=== PATIENT | male | born 1950 | race Caucasian/White ===

== ENCOUNTER 2019-12-30 06:21 | Emergency (ER) | payer MEDICARE, BC ==
[2019-12-30 06:31] VITALS: BP 181/78; PULSE 103
--- NOTE | 2019-12-30 06:37 | EDM.PDOC ---
<Vinh Guzman - Last Filed: 12/30/19 06:35> ED HPI GENERAL MEDICAL PROBLEM - General Chief Complaint: Diabetic Complaint Stated Complaint: SOB, SWEATING Time Seen by Provider: 12/30/19 06:32 Source of Information: Reports: Patient History Limitations: Reports: No Limitations - History of Present Illness INITIAL COMMENTS - FREE TEXT/NARRATIVE: woke up feeling SOB, denies cough chest pain, but does feel achy all over. states does get SOB while going up stairs since gaining weight this winter. - Related Data Allergies Allergy/AdvReac Type Severity Reaction Status Date / Time No Known Allergies Allergy Verified 01/23/15 20:28 Home Meds: Home Meds Nateglinide 120 mg PO TIDAC 01/23/15 [History] Pioglitazone HCl 45 mg PO DAILY 01/23/15 [History] amLODIPine Besylate/Benazepril [Amlodipine-Benazepril 5-20 MG] 1 each PO DAILY 01/23/15 [History] atorvaSTATin Calcium [Atorvastatin Calcium] 40 mg PO BEDTIME 01/23/15 [History] metFORMIN [Glucophage XR] 1 tab PO DAILY 01/23/15 [History] Past Medical History Other HEENT History: wears corrective lenses Cardiovascular History: Reports: High Cholesterol, Hypertension Other Gastrointestinal History: Acid Reflux Endocrine/Metabolic History: Reports: Diabetes, Type II Social & Family History - Family History Family Medical History: Noncontributory - Tobacco Use Smoking Status *Q: Unknown Ever Smoked Second Hand Smoke Exposure: No - Caffeine Use Caffeine Use: Reports: Coffee - Alcohol Use Days Per Week of Alcohol Use: 7 Number of Drinks Per Day: 2 Total Drinks Per Week: 14 - Recreational Drug Use Recreational Drug Use: No ED ROS GENERAL - Review of Systems Review Of Systems: Comprehensive ROS is negative, except as noted in HPI. ED EXAM GENERAL NO PERIP PULSE - Physical Exam Exam: See Below Exam Limited By: No Limitations General Appearance: Alert, WD/WN, Mild Distress, Other (discomfort) Ears: Hearing Grossly Normal Throat/Mouth: Normal Voice, No Airway Compromise Head: Atraumatic Neck: Non-Tender, Full Range of Motion Respiratory/Chest: No Accessory Muscle Use, Rhonchi Cardiovascular: Regular Rate, Rhythm GI/Abdominal: Soft, Non-Tender Extremities: Pedal Edema, Other (2+ bilateral) Neurological: Alert, Oriented, Normal Cognition, Normal Gait, No Motor/Sensory Deficits Psychiatric: Flat Affect Skin Exam: Warm, Dry, Normal Color Lymphatic: No Adenopathy Course - Vital Signs Last Recorded V/S: Last Vital Signs Temp 97.4 F 12/30/19 06:29 Pulse 103 H 12/30/19 06:29 Resp 18 12/30/19 06:29 BP 181/78 H 12/30/19 06:29 Pulse Ox 97 12/30/19 06:29 - Orders/Labs/Meds Orders: Active Orders 24 hr Category Date Time Status EKG Documentation Completion [RC] STAT Care 12/30/19 06:34 Active Heparin Sodium/0.45% NaCl [Heparin 25,000 Units in 1/2 Med 12/30/19 07:30 Active NS 500 ML] 25,000 units in 500 ml IV TITRATE Sodium Chloride 0.9% [Normal Saline] 1,000 ml Med 12/30/19 07:52 Active IV .BOLUS Isolation [COMM] Routine Oth 12/30/19 06:39 Active Medication Orders Heparin Sodium/Sodium Chloride (Heparin 25,000 Units In 1/2 Ns 500 Ml) 25,000 units in 500 mls @ 28.653 mls/hr IV TITRATE ZULEYMA; Protocol Last Admin: 12/30/19 07:44 Dose: 12 units/kg/hr, 28.653 mls/hr Sodium Chloride (Normal Saline) 1,000 mls @ 999 mls/hr IV .BOLUS ONE Stop: 12/30/19 08:52 Labs: Laboratory Tests 12/30/19 12/30/19 12/30/19 Range/Units 06:30 06:30 06:30 WBC 9.8 (5.0-10.0) 10^3/uL RBC 3.68 L (4.6-6.2) 10^6/uL Hgb 11.1 L (14.0-18.0) g/dL Hct 33.3 L (40.0-54.0) % MCV 90.5 (80-100) fL MCH 30.2 (27.0-34.0) pg MCHC 33.3 (33.0-35.0) g/dL Plt Count 300 (150-450) 10^3/uL Neut % (Auto) 85.0 H (42.2-75.2) % Lymph % (Auto) 8.5 L (20.5-50.1) % [place] % (Auto) 5.3 (2-8) % Eos % (Auto) 0.8 L (1.0-3.0) % Baso % (Auto) 0.4 (0.0-1.0) % Sodium 137 (136-145) mmol/L Potassium 4.5 (3.5-5.1) mmol/L Chloride 100 (98-107) mmol/L Carbon Dioxide 25 (21-32) mmol/L Anion Gap 16.5 H (7-13) mEq/L BUN 30 H (7-18) mg/dL Creatinine 1.38 H (0.70-1.30) mg/dL Est Cr Clr Drug Dosing 52.29 mL/min Estimated GFR (MDRD) 51 BUN/Creatinine Ratio 21.7 (No establ ref range) Glucose 94 (74-99) mg/dL Lactic Acid 1.9 (0.4-2.0) mmol/L Calcium 9.2 (8.5-10.1) mg/dL Total Bilirubin 0.2 (0.2-1.0) mg/dL AST 31 (15-37) U/L ALT 32 (16-63) U/L Alkaline Phosphatase 59 (46-116) U/L Troponin I 0.672 H* (0.000-0.056) ng/mL B-Natriuretic Peptide 30 (0-100) pg/ml Total Protein 8.1 (6.4-8.2) g/dL Albumin 4.4 (3.4-5.0) g/dL Globulin 3.7 Albumin/Globulin Ratio 1.2 SARS-CoV-2 RNA (RT-PCR) (NEGATIVE) 12/30/19 Range/Units 07:36 WBC (5.0-10.0) 10^3/uL RBC (4.6-6.2) 10^6/uL Hgb (14.0-18.0) g/dL Hct (40.0-54.0) % MCV (80-100) fL MCH (27.0-34.0) pg MCHC (33.0-35.0) g/dL Plt Count (150-450) 10^3/uL Neut % (Auto) (42.2-75.2) % Lymph % (Auto) (20.5-50.1) % [place] % (Auto) (2-8) % Eos % (Auto) (1.0-3.0) % Baso % (Auto) (0.0-1.0) % Sodium (136-145) mmol/L Potassium (3.5-5.1) mmol/L Chloride (98-107) mmol/L Carbon Dioxide (21-32) mmol/L Anion Gap (7-13) mEq/L BUN (7-18) mg/dL Creatinine (0.70-1.30) mg/dL Est Cr Clr Drug Dosing mL/min Estimated GFR (MDRD) BUN/Creatinine Ratio (No establ ref range) Glucose (74-99) mg/dL Lactic Acid (0.4-2.0) mmol/L Calcium (8.5-10.1) mg/dL Total Bilirubin (0.2-1.0) mg/dL AST (15-37) U/L ALT (16-63) U/L Alkaline Phosphatase (46-116) U/L Troponin I (0.000-0.056) ng/mL B-Natriuretic Peptide (0-100) pg/ml Total Protein (6.4-8.2) g/dL Albumin (3.4-5.0) g/dL Globulin Albumin/Globulin Ratio SARS-CoV-2 RNA (RT-PCR) Negative (NEGATIVE) Meds: Medications Generic Name Dose Route Start Last Admin Trade Name Freq PRN Reason Stop Dose Admin Heparin Sodium/Sodium Chloride 25,000 units in 500 mls @ 28.653 mls/hr 07:30 12/30/19 07:44 Heparin 25,000 Units In 1/2 Ns 500 Ml IV 12 units/kg/hr TITRATE ZULEYMA 28.653 mls/hr Administration Protocol 12 UNITS/KG/HR Sodium Chloride 1,000 mls @ 999 mls/hr 12/30/19 07:52 Normal Saline IV 12/30/19 08:52 .BOLUS ONE Discontinued Medications Generic Name Dose Route Start Last Admin Trade Name Freq PRN Reason Stop Dose Admin Heparin Sodium (Porcine) 4,000 units 12/30/19 07:32 12/30/19 07:44 Heparin Sodium IVPUSH 12/30/19 07:33 4,000 units .BOLUS ONE Administration Departure - Departure Disposition: DC/Tfer to [facility] 02 Clinical Impression: NSTEMI (non-ST elevated myocardial infarction) Diabetes Qualifiers: Diabetes mellitus type: type 2 Diabetes mellitus mcfp insulin use: unspecified long term care pharmacist insulin use status Diabetes mellitus complication status: without complication Qualified Code(s): E11.9 - Type 2 diabetes mellitus without complications Hypertension Qualifiers: Hypertension type: essential hypertension Qualified Code(s): I10 - Essential ( primary) hypertension Hyperlipidemia Qualifiers: Hyperlipidemia type: unspecified Qualified Code(s): E78.5 - Hyperlipidemia, unspecified - Discharge Information Forms: ED Department Discharge, Interfacility Transfer [facility] Sepsis Event Note - Evaluation Sepsis Screening Result: No Definite Risk - Focused Exam Vital Signs: Vital Signs Temp Pulse Resp BP Pulse Ox 12/30/19 06:29 97.4 F 103 H 18 181/78 H 97 Date Exam was Performed: 12/30/19 Time Exam was Performed: 06:35 - My Orders Last 24 Hours: My Active Orders 12/30/19 07:30 Heparin Sodium/0.45% NaCl [Heparin 25,000 Units in 1/2 NS 500 ML] 25,000 units in 500 ml IV TITRATE 12/30/19 07:52 Sodium Chloride 0.9% [Normal Saline] 1,000 ml IV .BOLUS - Assessment/Plan Last 24 Hours: My Active Orders 12/30/19 07:30 Heparin Sodium/0.45% NaCl [Heparin 25,000 Units in 1/2 NS 500 ML] 25,000 units in 500 ml IV TITRATE 12/30/19 07:52 Sodium Chloride 0.9% [Normal Saline] 1,000 ml IV .BOLUS <Maria Bustos - Last Filed: 12/30/19 08:10> Course - Orders/Labs/Meds Meds: Medications Generic Name Dose Route Start Last Admin Trade Name Freq PRN Reason Stop Dose Admin Heparin Sodium/Sodium Chloride 25,000 units in 500 mls @ 28.653 mls/hr 07:30 12/30/19 07:44 Heparin 25,000 Units In 1/2 Ns 500 Ml IV 12 units/kg/hr TITRATE ZULEYMA 28.653 mls/hr Administration Protocol 12 UNITS/KG/HR Sodium Chloride 1,000 mls @ 999 mls/hr 12/30/19 07:52 Normal Saline IV 12/30/19 08:52 .BOLUS ONE Discontinued Medications Generic Name Dose Route Start Last Admin Trade Name Yolis PRN Reason Stop Dose Admin Heparin Sodium (Porcine) 4,000 units 12/30/19 07:32 12/30/19 07:44 Heparin Sodium IVPUSH 12/30/19 07:33 4,000 units .BOLUS ONE Administration - Radiology Interpretation Free Text/Narrative:: Chest xray: FINDINGS: Lungs: Unremarkable. No consolidation. Pleural space: Unremarkable. No pleural effusion. No pneumothorax. Heart/Mediastinum: Unremarkable. No cardiomegaly. Bones/joints: Degenerative changes involve the spine. IMPRESSION: No evidence for acute pulmonary disease. Thank you for allowing us to participate in the care of your patient. Dictated and Authenticated by: Luis Beckford MD 12/30/2019 6:55 AM Central Time ([place] & [place]) See rad report - Re-Assessments/Exams Free Text/Narrative Re-Assessment/Exam: 12/30/19 08:07 Discussed patient case with Dr. Cleveland who agreed to accept the patient for transfer to [facility]. 12/30/19 08:08 Departure - Departure Time of Disposition: 08:08 Condition: Fair - Discharge Information *PRESCRIPTION DRUG MONITORING PROGRAM REVIEWED*: No *COPY OF PRESCRIPTION DRUG MONITORING REPORT IN PATIENT BILLY: No Sepsis Event Note - Focused Exam Date Exam was Performed: 12/30/19 Time Exam was Performed: 08:07 - My Orders Last 24 Hours: My Active Orders 12/30/19 07:30 Heparin Sodium/0.45% NaCl [Heparin 25,000 Units in 1/2 NS 500 ML] 25,000 units in 500 ml IV TITRATE 12/30/19 07:52 Sodium Chloride 0.9% [Normal Saline] 1,000 ml IV .BOLUS - Assessment/Plan Last 24 Hours: My Active Orders 12/30/19 07:30 Heparin Sodium/0.45% NaCl [Heparin 25,000 Units in 1/2 NS 500 ML] 25,000 units in 500 ml IV TITRATE 12/30/19 07:52 Sodium Chloride 0.9% [Normal Saline] 1,000 ml IV .BOLUS
[2019-12-30 07:03] LABS: ANION GAP 16.5 mEq/L (7-13)
[2019-12-30] MEDS ORDERED: Heparin Sodium/0.45% NaCl 25,000 UNITS/500 ML BAG IV SCH (07:30)
[2019-12-30] MEDS ORDERED: Heparin Sodium 5,000 Units/ML Vial IVPUSH ONE (07:32)
[2019-12-30] MEDS ORDERED: Sodium Chloride 0.9% 1,000 ML IV ONE (07:52)
== END 2019-12-30 08:38 ==
LOC: DL.ED 06:21
DX: I21.4 Non-ST elevation (NSTEMI) myocardial infarction (principal); I10 Essential (primary) hypertension; E78.5 Hyperlipidemia, unspecified; E11.9 Type 2 diabetes mellitus without complications; E78.00 Pure hypercholesterolemia, unspecified; K21.9 Gastro-esophageal reflux disease without esophagitis; Z79.84 Long term (current) use of oral hypoglycemic drugs; Z79.899 Other long term (current) drug therapy
CPT/HCPCS: 36415; 71045; 80053; 82962; 83605; 83880; 84484; 85025; 87804; 93005; 96365; 99284; 99285; J1644; J7030; U0002